=== PATIENT | female | born 2000 | race Caucasian/White ===

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

== ENCOUNTER 2018-10-11 13:10 | Emergency (ER) | payer BC ==
[2018-10-11 13:20] VITALS: BP 106/57
--- NOTE | 2018-10-11 14:21 | UC ---
Skin Complaint HPI - HPI Summary HPI Summary: Patient has had a chronic small cyst on her right upper back for approximately one year. She stated in the recent past it has gotten bigger and during the night and today it's more tender. She denies any fever or chills or symptoms of illness. - History of Current Complaint Chief Complaint: UCSkin Time Seen by Provider: 10/11/18 14:20 Stated Complaint: SOFT TISSUE COMPLAINT Hx Obtained From: Patient Hx Last Menstrual Period: 09/02/18 ?: No Onset/Duration: Gradual Onset, Other - Patient has had a cyst there for more than a year. Skin Exposure Onset/Duration: Worse Since: - Worse since yesterday where she noticed it was more tender and painful. Timing: Constant Onset Severity: Mild Current Severity: Moderate Pain Intensity: 4 Location: Other - Right upper back. Character: Swelling, Pain, Raised Aggravating Factor(s): Touch Alleviating Factor(s): Nothing Associated Signs & Symptoms: Positive: Negative - Allergy/Home Medications Allergies/Adverse Reactions: Allergies Allergy/AdvReac Type Severity Reaction Status Date / Time azithromycin Allergy GI Upset Verified 10/11/18 13:20 PMH/Surg Hx/FS Hx/Imm Hx Previously Healthy: Yes - Surgical History Surgical History: Yes Surgery Procedure, Year, and Place: two teeth pulled under sedation 2014 - Family History Known Family History: Positive: Other - No sinus dz. - Social History Alcohol Use: None Substance Use Type: None Smoking Status (MU): Never Smoked Tobacco - Immunization History Most Recent Influenza Vaccination: denies Review of Systems All Other Systems Reviewed And Are Negative: Yes Skin: Positive: Other - Small cyst right upper back for over a year which is gradually gotten bigger and today was more tender and painful. Is Patient Immunocompromised?: No Physical Exam Triage Information Reviewed: Yes Appearance: Well-Appearing, No Pain Distress, Well-Nourished Vital Signs: Initial Vital Signs Temp 98 F 10/11/18 13:18 Pulse 100 10/11/18 13:18 Resp 16 10/11/18 13:18 BP 106/57 10/11/18 13:18 Pulse Ox 100 10/11/18 13:18 Vital Signs Reviewed: Yes Skin: Positive: Other - Patient has what feels like an appears like a skin cyst right upper back measuring approximately 1.0 cm in diameter. It is mildly tender on palpation but there is no erythema, swelling, bruising or deformity noted. Course/Dx - Course Course Of Treatment: 18-year-old female who has a cyst in her right upper back. She is unable to get into a ophthalmic nurse for several weeks and states that today it was more painful and tender. I did give her the name of the surgeon on-call to talk with that office to see if they would possibly remove the sooner than her ophthalmic nurse can because it seems to be bothering her more. She is agreeable to this plan of action. She can take some Motrin and try applying warm moist compresses avoid all feel this is an abscess formation I believe this is a skin cyst. - Diagnoses Provider Diagnosis: Skin cyst Discharge - Sign-Out/Discharge Documenting (check all that apply): Patient Departure All imaging exams completed and their final reports reviewed: No Studies - Discharge Plan Condition: Fair Disposition: HOME Patient Education Materials: Cyst (ED) Referrals: No Primary Care Phys,NOPCP [Primary Care Provider] - Jason Whitlock MD [Medical Doctor] - Additional Instructions: Ibuprofen 600 mg every 8 hours as needed for pain, may apply warm moist compresses to the area. Definite follow-up with either the ophthalmic nurse or surgeon for further evaluation and treatment. - Billing Disposition and Condition Condition: FAIR Disposition: Home
== END 2018-10-11 14:29 | disposition home or self-care (01) ==
LOC: UCEAST 13:10
DX: L72.9 Follicular cyst of the skin and subcutaneous tissue, unspecified (principal)
CPT/HCPCS: 99211; G0463

== ENCOUNTER 2018-10-12 09:23 | Emergency (ER) | payer BC ==
[2018-10-12 11:43] VITALS: BP 93/46
--- NOTE | 2018-10-12 12:12 | ED ---
Skin Complaint - HPI Summary HPI Summary: Patient is a 18-year-old female who presents to the ED with pain ovary cyst to her right shoulder. She was seen at urgent care yesterday and they stated there was nothing they could do at that time but they had given her a follow-up to surgery on Sunday. She states the pain has continued and despite this being a chronic small cyst for the past several months to years, she states it grew almost tripled in size over the past few days. She is concerned over infection and worsening pain. Patient is currently . She denies any fevers, sweats, chills. Symptoms are worse with palpation and touch and better with rest. She is not use any heat or ice to the area. She has not been using any ibuprofen or Tylenol. - History of Current Complaint Chief Complaint: EDRashSkinAbscess Time Seen by Provider: 10/12/18 10:26 Stated Complaint: HARD/PAINFUL CYST ON RT SHOULDER PER PT Hx Obtained From: Patient Hx Last Menstrual Period: 09/02/18 Onset/Duration: Started Days Ago Skin Exposure Onset/Duration: Days Ago Timing: Constant Onset Severity: Moderate Current Severity: Moderate Pain Intensity: 7 Pain Scale Used: 0-10 Numeric Skin Location: Other: - right sided shoulder cyst Aggravating Symptom(s): Touch Alleviating Symptom(s): Nothing Associated Signs & Symptoms: Negative - Allergy/Home Medications Allergies/Adverse Reactions: Allergies Allergy/AdvReac Type Severity Reaction Status Date / Time azithromycin Allergy GI Upset Verified 10/12/18 09:38 Home Medications: Home Medications Vitamin TAB* 1 tab PO DAILY 10/12/18 [History Confirmed 10/12/18] PMH/Surg Hx/FS Hx/Imm Hx Previously Healthy: Yes Endocrine/Hematology History: Denies: Hx Diabetes, Hx Thyroid Disease Cardiovascular History: Denies: Hx Hypertension Respiratory History: Denies: Hx Asthma, Hx Chronic Obstructive Pulmonary Disease (COPD) GI History: Denies: Hx Ulcer - Surgical History Surgery Procedure, Year, and Place: two teeth pulled under sedation 2014 - Immunization History Hx Pertussis Vaccination: No Immunizations Up to Date: Yes Infectious Disease History: No Infectious Disease History: Denies: Hx Clostridium Difficile, Hx Hepatitis, Hx Human Immunodeficiency Virus (HIV), Hx Shingles, Hx Tuberculosis, Hx Known/Suspected VRE, Hx Known/ Suspected VRSA, History Other Infectious Disease, Traveled Outside the [place] in Last 30 Days - Family History Known Family History: Positive: Other - No sinus dz. - Social History Occupation: Employed Full-time Lives: With Family Alcohol Use: None Hx Substance Use: No Substance Use Type: Reports: None Hx Tobacco Use: No - called in to do the high Smoking Status (MU): Never Smoked Tobacco Review of Systems Constitutional: Negative Negative: Fever, Chills, Fatigue, Skin Diaphoresis Negative: Palpitations, Chest Pain Negative: Shortness Of Breath, Cough Genitourinary: Negative Positive: no symptoms reported, see HPI Negative: Myalgia Positive: Other - right shoulder epidermal cyst Neurological: Negative All Other Systems Reviewed And Are Negative: Yes Physical Exam Triage Information Reviewed: Yes Vital Signs On Initial Exam: Initial Vitals Temp Pulse Resp BP Pulse Ox 99.8 F 115 16 143/79 97 10/12/18 09:34 10/12/18 09:34 10/12/18 09:34 10/12/18 09:34 10/12/18 09:34 Vital Signs Reviewed: Yes Appearance: Positive: Well-Appearing, Well-Nourished Skin: Positive: Warm, Skin Color Reflects Adequate Perfusion, Other - epidermal cyst Head/Face: Positive: Normal Head/Face Inspection Eyes: Positive: EOMI, Conjunctiva Clear Neck: Positive: Supple, No Lymphadenopathy Respiratory/Lung Sounds: Positive: Clear to Auscultation, Breath Sounds Present Cardiovascular: Positive: Normal, RRR, Pulses are Symmetrical in both Upper and Lower Extremities Musculoskeletal: Positive: Strength/ROM Intact Neurological: Positive: Sensory/Motor Intact, Alert, Oriented to Person Place, Time, Speech Normal Psychiatric: Positive: Affect/Mood Appropriate Diagnostics - Vital Signs Vital Signs Temp Pulse Resp BP Pulse Ox 10/12/18 11:41 99.0 F 87 14 93/46 100 10/12/18 09:34 99.8 F 115 16 143/79 97 - Laboratory Lab Statement: Any lab studies that have been ordered have been reviewed, and results considered in the medical decision making process. Course/Dx - Course Course Of Treatment: During this course of treatment, the patient is evaluated for I right sided epidermal sebaceous cyst to the shoulder. She states this tripled in size of the past week or so. She is endorsing 10/10 pain. She states she is unable to take the pain anymore which is why she came to the ED per she does have a follow-up to surgery on Sunday area denies any fevers, sweats, chills. There is no erythema or ecchymosis around the area. On light palpation, patient is endorsing pain at 10/10, without palpation, pain is rated a 8/10. There are no other signs of infection, however due to the enlargement over the past few days, patient will be placed on Keflex. She is also given tramadol for pain not well controlled with Tylenol. It was found after patient' s discharge she was . Called patient to discuss Keflex would be okay to take, did not take ibuprofen and take Tylenol instead. She is able to take tramadol for severe pain not well controlled with Tylenol and up-to-date was consulted on tramadol drug information with implications. This was explained to the patient that this crosses the placenta and risks to the were explained to the patient. - Differential Diagnoses - Skin Complaint Differential Diagnoses: Other - Lipoma, abscess - Diagnoses Provider Diagnoses: Epidermal cyst Discharge - Sign-Out/Discharge Documenting (check all that apply): Patient Departure Patient Received Moderate/Deep Sedation with Procedure: No - Discharge Plan Condition: Stable Disposition: HOME Prescriptions: Cephalexin CAP* [Keflex CAP*] 500 mg PO TID #15 cap MDD 3 traMADol TAB* [Ultram*] 50 mg PO Q8H PRN #9 tab MDD 3 PRN Reason: Pain Patient Education Materials: Dermal Cyst Excision (DC), Epidermal Inclusion Cysts (ED) Referrals: No Primary Care Phys,NOPCP [Primary Care Provider] - Additional Instructions: Ibuprofen 600 mg 3 times daily Moist heat to the area Keflex 3 times daily for a possible infection component Tramadol as needed for discomfort Do not wear anything over the area that will cause worsening pain Follow up with surgeon as scheduled on Sunday If you develop any worsening redness or swelling to the area, return to the ED - Billing Disposition and Condition Condition: STABLE Disposition: Home
== END 2018-10-12 11:41 | disposition home or self-care (01) ==
LOC: ED 09:23
DX: L72.0 Epidermal cyst (principal); M25.511 Pain in right shoulder
CPT/HCPCS: 99282

== ENCOUNTER 2019-02-04 12:43 | Emergency (ER) | payer OTHER ==
--- NOTE | 2019-02-04 13:46 | ED ---
HPI Febrile Illness - HPI Summary HPI Summary: Pt is a 18 y/o F presenting to the ED with a chief complaint of a febrile illness. She states she has been around many family members who have been sick with pneumonia. She reports diarrhea, SAMPSON, highest fever of 101.3, general bodyaches, and nausea. She denies cough, sore throat, dysuria, hematuria, abd pain, vomiting, vaginal discharge, vaginal bleeding, or neck pain. She is currently 22wks . This is her 2nd . - History of Current Complaint Chief Complaint: EDHeadache Time Seen by Provider: 02/04/19 13:22 Hx Obtained From: Patient Hx Last Menstrual Period: 09/02/18 Onset/Duration: Started Hours Ago, Still Present Timing: Constant, Lasting Hours Initial Severity: Moderate Current Severity: Moderate Pain Intensity: 6 Pain Scale Used: 0-10 Numeric Aggravating Factors: Nothing Alleviating Factors: Nothing Associated Signs and Symptoms: Diarrhea, Headache, Myalgia, Nausea - Allergy/Home Medications Allergies/Adverse Reactions: Allergies Allergy/AdvReac Type Severity Reaction Status Date / Time azithromycin Allergy GI Upset Verified 02/04/19 13:29 PMH/Surg Hx/FS Hx/Imm Hx Previously Healthy: Yes Endocrine/Hematology History: Denies: Hx Diabetes, Hx Thyroid Disease Cardiovascular History: Denies: Hx Hypertension Respiratory History: Denies: Hx Asthma, Hx Chronic Obstructive Pulmonary Disease (COPD) GI History: Denies: Hx Ulcer - Surgical History Surgery Procedure, Year, and Place: two teeth pulled under sedation 2014 Infectious Disease History: No Infectious Disease History: Denies: Hx Clostridium Difficile, Hx Hepatitis, Hx Human Immunodeficiency Virus (HIV), Hx Shingles, Hx Tuberculosis, Hx Known/Suspected VRE, Hx Known/ Suspected VRSA, History Other Infectious Disease, Traveled Outside the [place] in Last 30 Days - Family History Known Family History: Positive: Other - No sinus dz. - Social History Alcohol Use: None Hx Substance Use: No Substance Use Type: Reports: None Hx Tobacco Use: No - called in to do the high Smoking Status (MU): Never Smoked Tobacco Review of Systems Positive: Fever Negative: Sore Throat, Other - neck pain Negative: Cough Positive: Diarrhea, Nausea. Negative: Abdominal Pain, Vomiting Negative: dysuria, discharge, hematuria, other - vaginal bleeding Positive: Myalgia Positive: Headache All Other Systems Reviewed And Are Negative: Yes Physical Exam - Summary Physical Exam Summary: Constitutional: Well-developed, Well-nourished, Alert. (-) Distressed Skin: Warm, Dry HENT: Normocephalic; Atraumatic Eyes: Conjunctiva normal Neck: Musculoskeletal ROM normal neck. (-) JVD, (-) Stridor, (-) Tracheal deviation Cardio: Rhythm regular, rate normal, Heart sounds normal; Intact distal pulses; The pedal pulses are 2+ and symmetric. Radial pulses are 2+ and symmetric. (-) Murmur Pulmonary/Chest wall: Effort normal. (-) Respiratory distress, (-) Wheezes, (-) Rales Abd: Soft, (-) tenderness, (-) Distension, (-) Guarding, (-) Rebound Musculoskeletal: (-) Edema Lymph: (-) Cervical adenopathy Neuro: Alert, Oriented x3 Psych: Mood and affect Normal Triage Information Reviewed: Yes Vital Signs On Initial Exam: Initial Vitals Temp Pulse Resp BP Pulse Ox 98.3 F 115 18 109/60 98 02/04/19 13:07 02/04/19 13:07 02/04/19 13:07 02/04/19 13:07 02/04/19 13:07 Vital Signs Reviewed: Yes Diagnostics - Vital Signs Vital Signs Temp Pulse Resp BP Pulse Ox 02/04/19 13:07 98.3 F 115 18 109/60 98 - Laboratory Lab Statement: Any lab studies that have been ordered have been reviewed, and results considered in the medical decision making process. Course/Dx - Course Course Of Treatment: Patient is here with low-grade fever, diarrhea, body aches. Patient's liver well-appearing with a benign exam. Patient's been exposed to pneumonia and was concerned about that so a chest x-ray performed which showed no abnormality. Patient clinically is well-appearing and did not need further testing here. - Diagnoses Provider Diagnoses: Headache, Fever, Diarrhea Discharge ED - Sign-Out/Discharge Documenting (check all that apply): Patient Departure Patient Received Moderate/Deep Sedation with Procedure: No - Discharge Plan Condition: Stable Disposition: HOME Patient Education Materials: Fever in Adults (ED), General Headache (ED) Referrals: [facility] [Outside] Additional Instructions: Please follow up with your BEHAVIORAL SCIENCE CHAIR within the next 1-3 days. Return to the emergency department with any worsening headache, severe fever, abdominal pain, trouble breathing, or severe vomiting. - Billing Disposition and Condition Condition: STABLE Disposition: Home - Attestation Statements Document Initiated by Lisibe: Yes Documenting Scribe: Cathi Babin Provider For Whom Mary is Documenting (Include Credential): Harinder Nolan MD. Scribe Attestation: Cathi Mancilla, scribed for Harinder Nolan MD. on 02/04/19 at 1836. Scribe Documentation Reviewed: Yes Provider Attestation: The documentation as recorded by the scribe, Cathi Babin accurately reflects the service I personally performed and the decisions made by , Harinder Nolan MD. Status of Scribe Document: Viewed
[2019-02-04 14:30] VITALS: BP 106/60
== END 2019-02-04 14:25 | disposition home or self-care (01) ==
LOC: ED 12:43
DX: R50.9 Fever, unspecified (principal); R51 Headache; R19.7 Diarrhea, unspecified; Z88.1 Allergy status to other antibiotic agents
CPT/HCPCS: 71046; 99282

== ENCOUNTER 2019-02-20 08:30 | Emergency (ER) | payer OTHER ==
[2019-02-20] MEDS ORDERED: Ondansetron INJ* 2 MG/ML VIAL IV ONE (08:50)
[2019-02-20] MEDS ORDERED: NS 0.9% 1000 ML** 1,000 ML IV ONE (08:50)
--- NOTE | 2019-02-20 08:50 | ED ---
Complex/Multi-Sys Presentation - HPI Summary HPI Summary: Patient is a 18-year-old female who presents emergency department for evaluation of cough, vomiting and diarrhea. Patient currently 25 weeks gestation without complications. Patient states she developed a cough that a week and a half ago and was seen in the emergency department. She had a chest x -ray at that time which was negative. Patient states cough resolved and then started again over the last few days. Patient notes that 2 family members have had pneumonia recently. Patient states cough is productive. Denies fever, shortness of breath, abdominal pain, vaginal discharge/bleeding, urinary symptoms. Patient also notes she developed vomiting and diarrhea yesterday which seems to be improving today. Symptoms are moderate in severity. No current modifying factors. Patient denies other past medical history. - History Of Current Complaint Chief Complaint: EDFluSymptoms Time Seen by Provider: 02/20/19 08:36 Hx Obtained From: Patient - Allergies/Home Medications Allergies/Adverse Reactions: Allergies Allergy/AdvReac Type Severity Reaction Status Date / Time azithromycin Allergy GI Upset Verified 02/20/19 08:57 PMH/Surg Hx/FS Hx/Imm Hx Previously Healthy: Yes Endocrine/Hematology History: Denies: Hx Diabetes, Hx Thyroid Disease Cardiovascular History: Denies: Hx Hypertension Respiratory History: Denies: Hx Asthma, Hx Chronic Obstructive Pulmonary Disease (COPD) GI History: Denies: Hx Ulcer - Surgical History Surgery Procedure, Year, and Place: two teeth pulled under sedation 2014 Infectious Disease History: No Infectious Disease History: Denies: Hx Clostridium Difficile, Hx Hepatitis, Hx Human Immunodeficiency Virus (HIV), Hx Shingles, Hx Tuberculosis, Hx Known/Suspected VRE, Hx Known/ Suspected VRSA, History Other Infectious Disease, Traveled Outside the [place] in Last 30 Days - Family History Known Family History: Positive: Other - No sinus dz., Non-Contributory - Social History Occupation: Unemployed Lives: With Family Alcohol Use: None Hx Substance Use: No Substance Use Type: Reports: None Hx Tobacco Use: No - called in to do the high Smoking Status (MU): Never Smoked Tobacco Review of Systems Constitutional: Negative Negative: Fever, Chills Eyes: Negative ENT: Negative Cardiovascular: Negative Positive: Cough. Negative: Shortness Of Breath Positive: Vomiting, Diarrhea. Negative: Abdominal Pain Genitourinary: Negative Negative: dysuria, discharge Musculoskeletal: Negative Skin: Negative Negative: Rash Neurological: Negative All Other Systems Reviewed And Are Negative: Yes Physical Exam Triage Information Reviewed: Yes Vital Signs On Initial Exam: Initial Vitals Temp Pulse Resp BP Pulse Ox 97.9 F 123 16 123/80 100 02/20/19 08:32 02/20/19 08:32 02/20/19 08:32 02/20/19 08:32 02/20/19 08:32 Vital Signs Reviewed: Yes Appearance: Positive: Well-Appearing - Pt. sitting up in bed in NAD. Skin: Positive: Warm, Dry Head/Face: Positive: Normal Head/Face Inspection Eyes: Positive: Normal, EOMI, SAÚL ENT: Positive: Pharynx normal, TMs normal. Negative: Tonsillar swelling, Tonsillar exudate Neck: Positive: Supple Respiratory/Lung Sounds: Positive: Clear to Auscultation, Breath Sounds Present. Negative: Rales, Rhonchi, Wheezes Cardiovascular: Positive: Normal, RRR Abdomen Description: Positive: Other: - appearing. Abd. soft and nontender throughout. Musculoskeletal: Positive: Normal, Strength/ROM Intact Neurological: Positive: Normal, CN Intact II-III Psychiatric: Positive: Affect/Mood Appropriate Procedures - Sedation Patient Received Moderate/Deep Sedation with Procedure: No Diagnostics - Vital Signs Vital Signs Temp Pulse Resp BP Pulse Ox 02/20/19 08:32 97.9 F 123 16 123/80 100 - Laboratory Result Diagrams: 02/20/19 09:14 02/20/19 09:14 Lab Statement: Any lab studies that have been ordered have been reviewed, and results considered in the medical decision making process. Complex Multi-Symp Course/Dx Course Of Treatment: Patient presenting with cough, vomiting and diarrhea. Exam is unremarkable. She is afebrile. Oxygen saturations normal. Mild tachycardia. Patient given dose of Zofran IV fluids. Labs unremarkable other than low potassium and magnesium. Do not suspect pneumonia based on exam. Patient agreeable with no chest x-ray. Suspect viral etiology. Patient tolerating by mouth fluids. To discharge home to follow up with OB if symptoms persist. Small rx of zofran given. Advised to increase fluids. We'll return the ER symptoms change or worsen. Patient understands and agrees with plan. - Diagnoses Provider Diagnoses: Cough, Gastroenteritis Discharge ED - Sign-Out/Discharge Documenting (check all that apply): Patient Departure - Discharge Plan Condition: Improved Disposition: HOME Prescriptions: Ondansetron HCl [Zofran] 4 mg PO Q6H #8 tablet Patient Education Materials: Gastroenteritis (ED), Acute Bronchitis (ED) Referrals: Matteo Araiza MD [Medical Doctor] - Additional Instructions: Schedule a close follow up with OB if symptoms persist Increase fluids and rest Zofran if needed Can take tylenol as directed for discomfort Return to ER if symptoms change or worsen - Billing Disposition and Condition Condition: IMPROVED Disposition: Home
[2019-02-20 09:22] LABS: Hematocrit 31 % (35-47); Mean Corpuscular HGB Conc 35 g/dL (31-36); Mean Corpuscular Hemoglobin 30 pg (27-31); Mean Corpuscular Volume 85 fL (80-97); Mean Platelet Volume 6.4 fL (7.4-10.4); Platelet Count 232 10^3/uL (150-450); Red Blood Count 3.68 10^6 /uL (3.70-4.87); Red Cell Distribution Width 13 % (10-15); White Blood Count 5.3 10^3/uL (3.5-10.8)
[2019-02-20 09:27] LABS: ABS Lymphocytes 0.6 10^3/ul (1.0-4.8); ABS Monocytes 0.7 10^3/ul (0-0.8); ABS Neutrophils 3.8 10^3/ul (1.5-7.7); Eosinophil % 0.4 %; Lymphocyte % 12.3 %
[2019-02-20 10:23] LABS: Albumin 3.3 g/dL (3.2-5.2); Calcium 8.1 mg/dL (8.6-10.3); Potassium 3.3 mmol/L (3.5-5.0); Total Bilirubin 0.5 mg/dL (0.2-1.0)
[2019-02-20 10:30] LABS: Albumin/Globulin Ratio 1.3 (1-3); BUN/Creatinine Ratio 15.1 (8-20); C Reactive Protein 38.82 mg/L (<8.01); EGFR Non-African American 147.1 (>60); Globulin 2.5 g/dL (2-4); Total Protein 5.8 g/dL (6.4-8.9)
[2019-02-20] MEDS ORDERED: Potassium Chlor TAB* 20 MEQ TAB.ER PO ONE (10:46)
[2019-02-20 11:54] VITALS: BP 106/68
== END 2019-02-20 11:50 | disposition home or self-care (01) ==
LOC: ED 08:30
DX: R05 Cough (principal); K52.9 Noninfective gastroenteritis and colitis, unspecified; Z88.1 Allergy status to other antibiotic agents
CPT/HCPCS: 36415; 80053; 83690; 85025; 86140; 96361; 96374; 99282; A9270-GY; J2405

== ENCOUNTER 2019-04-13 08:55 | Emergency (ER) | payer OTHER ==
--- NOTE | 2019-04-13 09:27 | ED ---
GI/ HPI - HPI Summary HPI Summary: Pt is a 18 y/o F presenting to the ED with a chief complaint of symptoms. Pt is 32wks with her 2nd . Over the past 3 weeks, she has experienced episodes of severe pain in her vagina that come on spontaneously a couple of times a week. She states she has a recent UTI and the current pain feels like a severe bladder infection. Usually, it comes on when she urinates, and she also reports frequency and urgency. She notes increased mucous discharge which she states is normal. She has been nauseous, and vomited once. She was advised to come here to r/o kidney stones. She denies abd pain, back pain, fever, hematuria, diarrhea, constipation, or vaginal bleeding. - History of Current Complaint Chief Complaint: EDUrogenitalProblems Time Seen by Provider: 04/13/19 09:02 Stated Complaint: URINATION/BLADDER ISSUES PER PT Hx Obtained From: Patient Hx Last Menstrual Period: 09/02/18 Onset/Duration: Started Weeks Ago, Still Present Timing: Intermittent, Lasting Hours Severity: Severe Current Severity: Moderate Pain Intensity: 7 Additional Location for Females: Uterus Pain Characteristics: Sharp Associated Signs and Symptoms: Positive: Nausea, Vomiting, Dysuria, UTI Symptoms. Negative: Back Pain, Constipation, Diarrhea, Fever, Hematuria, Flank Pain, Abdominal Pain Additional Signs & Symptoms: Positive: Vaginal Discharge, . Negative: Vaginal Bleeding Aggravating Factor(s): Nothing Alleviating Factor(s): Spontaneous Resolution - Allergy/Home Medications Allergies/Adverse Reactions: Allergies Allergy/AdvReac Type Severity Reaction Status Date / Time azithromycin Allergy GI Upset Verified 04/13/19 09:01 Home Medications: Home Medications Vitamin TAB* 1 tab PO DAILY 04/13/19 [History Confirmed 04/13/19] PMH/Surg Hx/FS Hx/Imm Hx Previously Healthy: Yes Endocrine/Hematology History: Denies: Hx Diabetes, Hx Thyroid Disease Cardiovascular History: Denies: Hx Hypertension Respiratory History: Denies: Hx Asthma, Hx Chronic Obstructive Pulmonary Disease (COPD) GI History: Denies: Hx Ulcer - Surgical History Surgery Procedure, Year, and Place: two teeth pulled under sedation 2014 Infectious Disease History: No Infectious Disease History: Denies: Hx Clostridium Difficile, Hx Hepatitis, Hx Human Immunodeficiency Virus (HIV), Hx Shingles, Hx Tuberculosis, Hx Known/Suspected VRE, Hx Known/ Suspected VRSA, History Other Infectious Disease, Traveled Outside the [place] in Last 30 Days - Family History Known Family History: Positive: Other - No sinus dz. - Social History Alcohol Use: None Hx Substance Use: No Substance Use Type: Reports: None Hx Tobacco Use: No - called in to do the high Smoking Status (MU): Never Smoked Tobacco Review of Systems Negative: Fever Positive: Vomiting, Nausea. Negative: Abdominal Pain, Diarrhea, Other - constipation Positive: dysuria, discharge - vaginal, normal, frequency, urgency. Negative: flank pain, hematuria Negative: Myalgia - back pain All Other Systems Reviewed And Are Negative: Yes Physical Exam - Summary Physical Exam Summary: Constitutional: Well-developed, Well-nourished, Alert. (-) Distressed Skin: Warm, Dry HENT: Normocephalic; Atraumatic Eyes: Conjunctiva normal Neck: Musculoskeletal ROM normal neck. (-) JVD, (-) Stridor, (-) Tracheal deviation Cardio: Rhythm regular, rate normal, Heart sounds normal; Intact distal pulses; Radial pulses are 2+ and symmetric. (-) Murmur Pulmonary/Chest wall: Effort normal. (-) Respiratory distress, (-) Wheezes, (-) Rales Abd: Gravid uterus with uterus above the umbilicus, (-) tenderness, (-) Distension, (-) Guarding, (-) Rebound Musculoskeletal: (-) Edema Lymph: (-) Cervical adenopathy Neuro: Alert, Oriented x3 Psych: Mood and affect Normal Pelvic: Thick white discharge, mild amount, no CMT, no adnexal tenderness, no uterine tenderness. Triage Information Reviewed: Yes Vital Signs On Initial Exam: Initial Vitals Temp Pulse Resp BP Pulse Ox 98.8 F 108 16 129/83 98 04/13/19 08:57 04/13/19 08:57 04/13/19 08:57 04/13/19 08:57 04/13/19 08:57 Vital Signs Reviewed: Yes Procedures - Sedation Patient Received Moderate/Deep Sedation with Procedure: No Diagnostics - Vital Signs Vital Signs Temp Pulse Resp BP Pulse Ox 04/13/19 08:57 98.8 F 108 16 129/83 98 - Laboratory Result Diagrams: 04/13/19 09:23 04/13/19 09:23 Lab Statement: Any lab studies that have been ordered have been reviewed, and results considered in the medical decision making process. - Ultrasound Renal US Ultrasound Interpretation Completed By: Radiologist Summary of Ultrasound Findings: Mild right hydronephrosis. Right ureteral jet is not identified. ED physician has reviewed this report. GIGU Course/Dx - Course Course Of Treatment: Patient is here with 3 weeks of off and on dysuria. Patient was evaluated by her ticket collector yesterday and referred here for possible kidney stones. Patient's symptoms are not consistent with kidney stones and more consistent with UTI. Patient had blood work performed which was grossly unremarkable. Patient had a vaginal exam which showed a scant amount of thick white discharge with no concerning physical exam findings. Patient had a UA which showed mucus trace, WBCs, and RBCs. Given patient's hematuria and possible kidney stones, a ultrasound was performed. Patient has mild right [place] with no ureteral jets on the right side. Urology was called and they cannot rule out a stone based off of this they recommended 1 dose of IV Rocephin and repeat IN ONE TO 2 DAYS. OBGYN WAS CALLED AND THEY'RE COMFORTABLE WITH DISCHARGE. PATIENT WAS TOLD TO CALL HER NON FERROUS MATERIAL HANDLER TO ARRANGE A OUTPATIENT REPEAT ULTRASOUND on Sunday or Sunday. - Diagnoses Provider Diagnoses: Dysuria, Frequency of urination, with hydronephrosis Discharge ED - Sign-Out/Discharge Documenting (check all that apply): Patient Departure - Discharge Plan Condition: Stable Disposition: HOME Patient Education Materials: Hydronephrosis (ED) Referrals: [facility] [Provider Group] Joan Foster [Stock Drier Tender] - Additional Instructions: Please call Joan Foster tomorrow morning to get a repeat ultrasound tomorrow or Sunday. You were given one dose of an antibiotic called Ceftriaxone, and you likely need to continue the antibiotics, which Joan will dictate. Return to the emergency department with any vaginal bleeding, severe fever, chills, vomiting, or any other concerning symptoms. - Billing Disposition and Condition Condition: STABLE Disposition: Home - Attestation Statements Document Initiated by Scribe: Yes Documenting Scribe: Cathi Babin Provider For Whom Mray is Documenting (Include Credential): Harinder Nolan MD. Scribe Attestation: Cathi Mancilla, scribed for Harinder Nolan MD. on 04/13/19 at 1229. Scribe Documentation Reviewed: Yes Provider Attestation: The documentation as recorded by the scribe, Cathi Babin accurately reflects the service I personally performed and the decisions made by me, Harinder Nolan MD. Status of Scribe Document: Viewed Consult Consult: 1144 - Dr. Olson recommends abx, repeat US in 1-2 days, and to call [facility] to see if they'd like to admit the pt. 1155 - Dr. Mace recommends 1 dose of Rocephin here, calling to follow up with Joan Foster in the morning, and scheduling a 2nd ultrasound for tomorrow.
[2019-04-13 09:31] LABS: ABS Lymphocytes 1.1 10^3/ul (1.0-4.8); ABS Monocytes 0.5 10^3/ul (0-0.8); ABS Neutrophils 5.8 10^3/ul (1.5-7.7); Eosinophil % 0.6 %; Hematocrit 36 % (35-47); Hemoglobin 12.6 g/dL (12.0-16.0); Lymphocyte % 15.2 %; Mean Corpuscular HGB Conc 35 g/dL (31-36); Mean Corpuscular Hemoglobin 29 pg (27-31); Mean Corpuscular Volume 85 fL (80-97); Mean Platelet Volume 6.9 fL (7.4-10.4); Platelet Count 275 10^3/uL (150-450); Red Blood Count 4.31 10^6 /uL (3.70-4.87); Red Cell Distribution Width 14 % (10-15); White Blood Count 7.5 10^3/uL (3.5-10.8)
[2019-04-13 09:46] LABS: Calcium 8.4 mg/dL (8.6-10.3); Potassium 3.6 mmol/L (3.5-5.0)
[2019-04-13 09:51] LABS: BUN/Creatinine Ratio 14.3 (8-20); EGFR African American 145.8 (>60); EGFR Non-African American 120.5 (>60)
[2019-04-13 09:57] LABS: Urine Appearance Turbid; Urine Bilirubin Negative (Negative); Urine Blood 2+ (Negative); Urine Color Yellow; Urine Glucose Negative (Negative); Urine Ketones Negative (Negative); Urine Nitrite Negative (Negative); Urine Protein 1+(30 mg/dL) (Negative); Urine Specific Gravity 1.025 (1.010-1.030); Urine Urobilinogen Negative (Negative)
[2019-04-13 10:13] LABS: Urine Bacteria 1+ (Absent); Urine Red Blood Cell 3+(>10/hpf) (Absent); Urine Squamous Epithelial Cell Present (Absent); Urine White Blood Cell 3+(>20/hpf) (Absent)
[2019-04-13] MEDS ORDERED: cefTRIAXone(*) 1 GM in NS 0.9% 50 ML* 50 ML IVPB ONE (11:55)
[2019-04-13 13:45] VITALS: BP 95/50
--- NOTE | 2019-04-13 14:00 | CONS ---
CC: Joan Foster; Dr. Dereje Olson * UROLOGY CONSULTATION: DATE OF CONSULT: 04/13/19 - EMERGENCY DEPT REQUESTING PHYSICIAN: Dr. Starks, Emergency Department. DIAGNOSES: 1. Right hydronephrosis (during ). 2. Possible urinary tract infection. HISTORY OF PRESENT ILLNESS: Libertad Cornejo is a 18-year-old lady who is 32 weeks (second ). About 3 to 4 weeks ago, she had fairly sudden onset of increased urinary frequency and dysuria and vaginal pain and was treated at that time by Jhony Foster for urinary tract infection (urine culture showed Staph saprophyticus). She said the symptoms resolved, but then recurred about a week later and again came on fairly quickly and consisted of frequency and urgency and dysuria. At this time, the symptoms resolved spontaneously without any treatment with antibiotics. She now had the onset of symptoms again about 48 hours ago and was seen by Jhony in the office on Sunday and was told that her urinalysis was not suggestive of a urinary infection. Her symptoms have worsened necessitating her trip to the emergency department. All through these issues over the last 3 to 4 weeks, she denies any flank pain or fever. There is no history of gross hematuria. There is no prior history of urolithiasis. There is no family history of kidney stones. PAST SURGICAL HISTORY: Significant for dental extraction with intravenous sedation. MEDICATIONS ON ADMISSION: Include vitamins. ALLERGIES: Azithromycin (GI upset). REVIEW OF SYSTEMS: She is otherwise in excellent health. There is no history of diabetes mellitus or any other major systemic illness. PHYSICAL EXAM: Reveals a pleasant, healthy, comfortable-appearing young lady who is alert and oriented. Temperature is 98.8, blood pressure 129/83, pulse 104 per minute and regular, oxygen saturation 98% on room air. Cardiovascular Exam: Regular rate and rhythm. S1, S2. Lungs are clear bilaterally. Abdomen is soft with no flank tenderness elicited either in the right or the left costovertebral angles. DIAGNOSTIC STUDIES/LAB DATA: Review of labs revealed a white count of 7.5, hemoglobin and hematocrit are normal at 12.6 and 36. Review of chemistry revealed sodium of 135, potassium of 3.6, BUN and creatinine are normal at 9 and 0.63. Calcium is 8.4. Urinalysis shows pH of 6.0 with 3+ leukocyte esterase , 3+ rbc's and 1+ bacteria. I reviewed the ultrasound which reveals mild right hydronephrosis with an absent right jet and no evidence of dilated ureter documented on the images that are available. IMPRESSION AND PLAN: I had a detailed discussion with the patient and it is possible that her recurrent symptoms may be related to passage of small calculi from the ureter. It does not seem typical of recurrent infections since her last episode involved spontaneous resolution without any antibiotics. Regardless, the plan should be for intravenous hydration and intravenous antibiotics and a urine culture which has been sent. I think she should have a followup ultrasound in the next 24 to 48 hours to make sure there is no progression of the hydronephrosis and I also think she should be treated with oral antibiotics until the urine culture is available. I have discussed this with the emergency department physician who is in contact with the obstetrics service to arrange all of the above things. I have also instructed the patient to return to the emergency room in the event of any fever or worsening pain and will be available if any of those things occur. [id number]/CPS #: [id number] PAT
[2019-04-14 13:56] LABS: Chlamydia trachomatis NAA Negative (Negative); Neisseria gonorrhoeae (GC) NAA Negative (Negative)
--- NOTE | 2019-04-15 06:52 | ED ---
Imaging and Labs Follow Up Follow Up Type: Labs/Cultures Labs/Culture Result: Preliminary urine culture shows greater than 100,000 Staphylococcus Saprophyticus. Patient was given 1 dose of ceftriaxone in the emergency department. Awaiting sensitivity report. Patient Communication/Plan: Waiting sensitivity report. Nothing further at this time. Provider Diagnoses: Dysuria, Frequency of urination, with hydronephrosis
== END 2019-04-13 13:32 | disposition home or self-care (01) ==
LOC: ED 08:55
DX: O99.89 Other specified diseases and conditions complicating pregnancy, childbirth and the puerperium (principal); N13.30 Unspecified hydronephrosis; Z3A.32 32 weeks gestation of pregnancy; Z88.1 Allergy status to other antibiotic agents
CPT/HCPCS: 36415; 76775; 80048; 81003; 81015; 85025; 87077; 87086; 87480; 87491; 87510; 87591; 87661; 96374; 99282; J0696

== ENCOUNTER 2019-06-03 05:57 | Inpatient (IN) | payer OTHER ==
--- NOTE | 2019-06-02 17:10 | HP ---
General Information - Reason for Visit Patient currently with Breech presentation. - General Information Maternal Age: 19 Grav: 2 Para: 1 SAB: 0 IEA: 0 Estimated Due Date: 06/10/19 Determined By: Early Ultrasound Gestational Age in Weeks/Days: 38 6/7 Maternal Blood Type and Rh: B Positive - Results this Serology/RPR Result: Non-Reactive Rubella Result: Immune HBsAg Result: Negative HIV Result: Negative GBS Culture Result: Negative Past Medical History Delivery History: See Records Pertinent Past Medical History: Non-Contributory Pertinent Past Surgical History: See Records Pertinent Family History: Non-Contributory - Antepartal Records Antepartal Records: Reviewed, Complicated by: - Persistent Breech presentation Review of Systems Constitutional: Comfortable CV Complaint: No Respiratory: Shortness of Breath: No Gastrointestinal: No Nausea/Vomiting, Normal Bowel Movement Genitourinary: No Dysuria, No Bleeding, No Leaking Fluid Musculoskeletal: No Complaint, No Epigastric Pain Neurological: No Headache, No Visual Changes Movement: Normal Exam Allergies/Adverse Reactions: Allergies azithromycin Allergy (Mild, Verified 06/01/19 14:42) GI Upset stated "throws up with the zpack" Temp 98.6 BP 110/70 P 84 RR 20 - Measurements Height: 5 ft 8 in Weight: 160 lb Weight in lbs: [phone] Body Mass Index (BMI): 24.3 Pre- Weight: 135 lb Weight Gained This : 25 lbs and 0 ozs - Exam Breast: Breast Exam Deferred CVA: No CVA Tenderness Extremities: No Edema Heart: Normal Rhythm/Heart Sounds HEENT: No Significant Findings Lungs: Clear Bilaterally Rectal: Rectal Exam Deferred Reflexes: DTR 2+ Thyroid: No Thyromegaly - Abdominal Exam Abdomen Exam: Non-Tender, Fundal Height Consistent with Dates - Ultrasound/Biophysical Profile Ultrasound Status: Bedside Exam - Breech presentation with head at maternal RUQ Targeted Exam Findings See L&D Outpatient Visit Provider Note for Findings: N/A Cervical Exam: Closed Presenting Part: Breech Membrane Status: Intact Bleeding/Discharge: None EFM Findings - External Monitor Findings Baseline Heart Rate: 140 Contractions: None Assessment/Plan - Assessment at 39 weeks tomorrow with Breech presentation. - Obstetrical Risk Factors Obstetrical Risk Factors: Breech - Plan Plan: IV Hydration, Antibiotic Prophylaxis, C/S Delivery - Date/Time of Admission Date of Admission: 06/03/19 Time of Admission: 07:00
[~2019-06-03 05:57] MED LIST: Buffered Lidocaine 1% SYRIN* 1 ML/SYRINGE INTRADERM ONE; Lactated Ringers 1000 ML Bag* 1,000 ML IV SCH; Sodium Citrate/Citric Acid* 15 ML UDC PO ONE; ceFOXitin 2 GM IVPREMIX* 2 GM/50 ML BAG IVPB ONE
[2019-06-03] MEDS ORDERED: Famotidine IV* 10 MG/ML 2 ML (20 mg) IV ONE (06:00)
[2019-06-03] MEDS ORDERED: Lactated Ringers 1000 ML Bag* 1,000 ML IV SCH ×2 (06:00→10:00)
[2019-06-03] MEDS ORDERED: Scopolamine 1.5 mg* PATCH TRANSDERM ONE (06:00)
[2019-06-03] MEDS ORDERED: Buffered Lidocaine 1% SYRIN* 1 ML/SYRINGE INTRADERM ONE (07:00)
[2019-06-03] MEDS ORDERED: fentaNYL* 50 MCG/ML 2 ML VIAL (100 MCG VIAL) ONE (07:36)
[2019-06-03] MEDS ORDERED: Midazolam* 1 MG/ML 5 ML VIAL (5 MG) ONE (07:36)
[2019-06-03] MEDS ORDERED: Morphine PF AMP (0.5MG/ML)* 5 MG/10 ML AMP ONE (07:36)
[2019-06-03] MEDS ORDERED: KETAMINE HCL* 50 MG/ML 10 ML VIAL ONE (07:36)
[2019-06-03] MEDS ORDERED: Phenylephrine 10 MG/ML VIAL* 1 ML VIAL ONE (07:37)
[2019-06-03] MEDS ORDERED: PROCHLORPERAZINE INJ 5 MG/ML 2 ML VIAL ONE (07:37)
[2019-06-03] MEDS ORDERED: Dexamethasone IV* 4 MG/ML 1 ML (4 MG) ONE (07:37)
[2019-06-03] MEDS ORDERED: Ondansetron INJ* 2 MG/ML VIAL ONE (07:37)
[2019-06-03] MEDS ORDERED: EPHEDrine (Pressors)* 50 MG/ML VIAL ONE (07:37)
[2019-06-03] MEDS ORDERED: Ketorolac INJ* 30 MG/ML 1 ML VIAL ONE (07:37)
[2019-06-03] MEDS ORDERED: OXYTOCIN* 10 UNITS/ML 1 ML VIAL ONE (07:37)
[2019-06-03 07:54] LABS: Urine Benzodiazepine Screen None Detected (None Detect); Urine Opiates Screen None Detected (None Detect)
[2019-06-03] MEDS ORDERED: Glycopyrrolate IV* 0.2 MG/ML 1 ML VIAL ONE (08:21)
[2019-06-03] MEDS ORDERED: Naloxone* 2 MG in NS 0.9% 250 ML* 250 ML IV PRN (08:22)
[2019-06-03] MEDS ORDERED: PROCHLORPERAZINE INJ 5 MG/ML 2 ML VIAL IV PRN (08:22)
[2019-06-03] MEDS ORDERED: Ketorolac INJ* 30 MG/ML 1 ML VIAL IV PRN (08:22)
[2019-06-03] MEDS ORDERED: oxyCODONE/Acetamin 5/325 MG* TAB PO PRN (08:22)
[2019-06-03] MEDS ORDERED: diPHENhydraMINE IV* 50 MG/ML 1 ml VIAL (BENADRYL) IV PRN (08:22)
[2019-06-03] MEDS ORDERED: Naloxone* 0.4 MG/ML 1 ML VIAL IV PRN ×2 (08:22→08:26)
[2019-06-03] MEDS ORDERED: DiMENhydriNATE IV* 50 MG/ML VIAL IV PUSH PRN (08:22)
[2019-06-03] MEDS ORDERED: Ondansetron INJ* 2 MG/ML VIAL IV PRN (08:22)
[2019-06-03] MEDS ORDERED: Nalbuphine* 10 MG/ML 1 ML VIAL IV PRN (08:22)
[2019-06-03] MEDS ORDERED: fentaNYL* 50 MCG/ML 2 ML VIAL (100 MCG VIAL) IV PRN (08:26)
[2019-06-03] MEDS ORDERED: Zolpidem TAB* 5 MG PO PRN (09:08)
[2019-06-03] MEDS ORDERED: Glycerin ADULT SUPP PR PRN (09:08)
[2019-06-03] MEDS ORDERED: Witch Hazel PAD* JAR TOPICAL PRN (09:08)
[2019-06-03] MEDS ORDERED: Dibucaine 1% 28.35 GM TUBE PR PRN (09:08)
[2019-06-03] MEDS: Acetaminophen TAB* 325 MG PO PRN (12:56)
[2019-06-03] MEDS: Docusate CAP* 100 MG PO SCH ×2 (12:57→20:22)
[2019-06-03] MEDS: Simethicone TAB* 80 MG TAB.CHEW PO SCH ×3 (12:57→20:22)
[2019-06-04] MEDS ORDERED: oxyCODONE/Acetamin 5/325 MG* TAB PO PRN ×2
[2019-06-04] MEDS: Ibuprofen TAB* 600 MG PO PRN ×4 (00:19→20:41)
--- NOTE | 2019-06-04 03:39 | OP ---
DATE OF OPERATION: 03/03/20 - ROOM #102 DATE OF : 98 SURGEON: Matteo Araiza MD REGULATION SUPERVISOR: Joan Foster, certified prosthetist vice president. ANESTHESIA: Spinal. PRE-OP DIAGNOSIS: at 39 weeks with a persistent breech presentation. POST-OP DIAGNOSIS: at 39 weeks with a persistent breech presentation and jonathan breech. OPERATIVE PROCEDURE: Primary low transverse section. ESTIMATED BLOOD LOSS: 600 cc. SPECIMEN SENT TO PATHOLOGY: Cord blood. IV FLUIDS: She received 2500 cc of IV crystalloid fluid. URINE OUTPUT: 50 cc of clear urine. FINDINGS: Delivery of a male infant in jonathan breech presentation via breech extraction with a weight of 6 pounds and 11 ounces with Apgars of 9 and 9. The placenta was grossly intact with a 3-vessel cord noted. The uterus, adnexa, bowel, and bladder were all within normal limits, and there were no complications. DESCRIPTION OF PROCEDURE: The patient was taken to the operating room where she was identified. She was placed on the operating table, where a spinal anesthetic was obtained without difficulty. She was then placed in the supine position with a leftward tilt, prepped and draped in the normal sterile fashion. A Pfannenstiel skin incision was made with a knife and carried through to the underlying layer of fascia. The fascia was nicked in the midline , extended laterally with curved Ladd scissors. The fascia was then grasped superiorly and inferiorly with Grace clamps and dissected off sharply from the rectus muscle. The rectus muscles was in the midline bluntly. The peritoneum was identified, grasped with pickups, and entered sharply with Metzenbaum scissors and extended superiorly and inferiorly sharply. A bladder blade was inserted into the patient's abdomen. A bladder flap was created using Metzenbaum scissors over which a bladder blade was then reinserted. A low transverse uterine incision was then made with a knife and extended laterally with bandage scissors. The amniotic sac was ruptured and the fluid was noted to be clear. The infant was then delivered via breech extraction without any complications. The cord was clamped and cut, and the was then handed off to awaiting glass novelty maker. Cord bloods were obtained. The placenta was removed manually. The uterus was then exteriorized, cleared of all clot and debris using moist laparotomy sponges. The uterine incision was then closed using 0 Polysorb suture in a running locked fashion with a second imbricating layer of 0 Polysorb suture with good hemostasis noted. The uterus was then returned to the patient's abdomen. The gutters were then cleared of all clots and debris using moist laparotomy sponges. All the sponges were removed from the patient's abdomen. The peritoneum was then closed using 0 Polysorb suture in a running fashion. The fascia was closed using 0 Polysorb suture in a running fashion an the skin was closed with a 4-0 Monocryl subcuticular stitch. The patient tolerated the procedure well. Sponge, lap, and needle counts were correct x2. She was then transferred to the recovery room area in stable condition. [id number]/[facility] #: [id number] MTDD
[2019-06-04 07:58] LABS: ABS Basophils 0.1 10^3/ul (0-0.2); ABS Lymphocytes 1.9 10^3/ul (1.0-4.8); ABS Monocytes 1.2 10^3/ul (0-0.8); ABS Neutrophils 10.1 10^3/ul (1.5-7.7); Eosinophil % 0.1 %; Hematocrit 30 % (35-47); Hemoglobin 10.5 g/dL (12.0-16.0); Lymphocyte % 14.1 %; Mean Corpuscular HGB Conc 35 g/dL (31-36); Mean Corpuscular Hemoglobin 29 pg (27-31); Mean Corpuscular Volume 82 fL (80-97); Mean Platelet Volume 7.5 fL (7.4-10.4); Platelet Count 190 10^3/uL (150-450); Red Blood Count 3.62 10^6 /uL (3.70-4.87); Red Cell Distribution Width 14 % (10-15); White Blood Count 13.3 10^3/uL (3.5-10.8)
[2019-06-04] MEDS: Acetaminophen TAB* 325 MG PO PRN ×4 (08:13→22:46)
[2019-06-04] MEDS: Docusate CAP* 100 MG PO SCH ×3 (08:13→20:41)
[2019-06-04] MEDS: Simethicone TAB* 80 MG TAB.CHEW PO SCH ×4 (08:13→20:42)
[2019-06-04] MEDS ORDERED: Ferrous Gluconate TAB* 324 MG TAB PO SCH (09:00)
[2019-06-04] MEDS ORDERED: Oxytocin in LR* 20 UNITS/1,000 ML BAG IVPB ONE (09:26)
[2019-06-05] MEDS: Ibuprofen TAB* 600 MG PO PRN (06:46)
[2019-06-05] MEDS: Acetaminophen TAB* 325 MG PO PRN (07:58)
[2019-06-05 08:11] VITALS: BP 107/72
[2019-06-05] MEDS: Simethicone TAB* 80 MG TAB.CHEW PO SCH (09:58)
[2019-06-05] MEDS: Docusate CAP* 100 MG PO SCH (09:58)
[2019-06-06] MEDS ORDERED: Scopolamine PATCH Remove* 1 NOTE MISC PATCH OFF ONE (06:00)
[2019-06-06] MEDS ORDERED: Scopolamine PATCH Remove* 1 NOTE MISC PATCH OFF PRN (08:23)
== END 2019-06-05 12:40 | disposition home or self-care (01) | DRG 540 ==
LOC: MCHOB 05:57
PROVIDERS: ADMIT Obstetrics & Gynecology; ATTEND Obstetrics & Gynecology
PROC: 4A1HXCZ Monitoring of Products of Conception, Cardiac Rate, External Approach (ICD-10-PCS; 2019-06-03)
PROC: 10D00Z1 Extraction of Products of Conception, Low, Open Approach (ICD-10-PCS; principal; 2019-06-03 07:45)
DX: O32.1XX0 Maternal care for breech presentation, not applicable or unspecified (principal); Z3A.39 39 weeks gestation of pregnancy; Z37.0 Single live birth; Z88.8 Allergy status to other drugs, medicaments and biological substances; Z28.21 Immunization not carried out because of patient refusal
CPT/HCPCS: 36415; 80307; 85025; A9270-GY; J0694; J0780; J1100; J1885; J2250; J2405; J2590; J3010